=== PATIENT | male | born 1950 | race Caucasian/White ===

== ENCOUNTER 2020-01-10 14:14 | Emergency (ER) | payer MEDICARE ==
[~2020-01-10] VITALS: Ht 165.1 cm; Wt 75.8 kg
[~2020-01-10 14:14] MED LIST: MOTION RELIEF25 MG PO; NORVASC10 MG PO; ZOFRAN ODT4 MG PO
[2020-01-10 15:12] VITALS: BP 123/76
== END 2020-01-10 15:12 | disposition home or self-care (01) ==
LOC: M.ERS 14:14
DX: Z43.1 Encounter for attention to gastrostomy (principal); I10 Essential (primary) hypertension; Z86.73 Personal history of transient ischemic attack (TIA), and cerebral infarction without residual deficits

== ENCOUNTER → 2020-01-29 | Outpatient (CLI) | payer MEDICARE | LOC: M.RAD 09:38 | DX: R06.02 Shortness of breath (principal); R05 Cough ==